=== PATIENT | female | born 1960 | race African-American/Black ===

== ENCOUNTER 2016-07-09 12:36 | Emergency (ER) | payer MEDICAID, OTHER ==
[~2016-07-09] VITALS: Ht 162.6 cm; Wt 94.0 kg
[2016-07-09] MEDS ORDERED: ACETAMINOPHEN 325MG TABLET PO ONE (14:00)
[2016-07-09] MEDS ORDERED: IPRATROPIUM/ALBUTEROL 0.5-3(2.5)MG/3ML NEB HHN ONE (14:30)
[2016-07-09 19:24] VITALS: BP 129/81
== END 2016-07-09 18:00 | disposition home or self-care (01) ==
LOC: ER 14:17
DX: M54.9 Dorsalgia, unspecified (principal); E78.00 Pure hypercholesterolemia, unspecified; I10 Essential (primary) hypertension
CPT/HCPCS: 71010; 93005; 94640; 99283; 99284; J7620